=== PATIENT | female | born 1990 | race Caucasian/White ===

== ENCOUNTER → 2017-06-04 | Outpatient (CLI) | payer BC, MEDICAID ==
--- NOTE | 2017-06-04 16:39 | DIREP ---
PROCEDURE:US OB 1ST TRIMESTER COMPARISON:None. INDICATIONS:12 WK IUP, DATES SIZES TECHNIQUE:Transabdominal pelvic ultrasound examinations were performed. Endovaginal images were also performed to optimally evaluate the and maternal adnexal structures. FINDINGS: GESTATIONAL SAC:Present and normal appearing. PLACENTA:No subchorionic hemorrhage. AMNIOTIC FLUID:Volume within normal limits. POLE:Present and normal appearing. CRL = 6.4 cm, corresponding to an EGA of 12 weeks 6 days. YOLK SAC:Not visualized. CARDIAC ACTIVITY:Present. 150 bpm. UTERUS:Normal. Measures 12.6 x 9.5 x 9.2 cm. OVARIES:Normal in size, shape, and echogenicity. The right measures 2.9 x 1.8 x 1.8 cm. The left measures 2.5 x 1.3 x 1.6 cm. There are no adnexal masses. CUL-DE-SAC:Normal. US AMITA:December 11, 2017. OTHER:Negative. CONCLUSION:Late 1st trimester intrauterine gestation as described above. Dictated by: MARIA DOLORES Physician on 06/04/2017 at 03:27 PM ld
== END | disposition home or self-care (01) ==
LOC: RAD 12:52
PROVIDERS: ATTEND Nurse Practitioner Women's Health
DX: Z34.81 Encounter for supervision of other normal pregnancy, first trimester (principal); Z3A.12 12 weeks gestation of pregnancy
CPT/HCPCS: 76801; 76817